=== PATIENT | male | born 1985 | race Hispanic/Latino ===

== ENCOUNTER 2020-04-18 01:24 | Inpatient (IN) | payer BC, SELFPAY ==
--- NOTE | 2020-04-18 02:14 | ER ---
Nurse's Notes [facility] Name: Todd Horner Age: 35 yrs Sex: Male : 1985 Arrival Date: 04/18/2020 Time: 01:29 Bed 3 Private MD: Diagnosis: Dyspnea;Hypoxemia;Other viral pneumonia-Covid 19;Obesity, unspecified Presentation: 04/18 01:45 Chief complaint: Patient states: i was tested covid positive last Apr 13, 2020 \T\ [address] i'm here for shortness of breath and fever. Coronavirus screen: Client denies travel out of the [place] in the last 14 days. Client reports previous positive COVID test result. Date of collection: April 13, 2020 \T\ [facility]. Ebola Screen: Patient positive for the following Ebola Virus Disease associated symptoms:. Initial Sepsis Screen: Does the patient meet any 2 criteria?. Risk Assessment: Do you want to hurt yourself or someone else? Patient reports no desire to harm self or others. Onset of symptoms was March 2020. 01:45 Method Of Arrival[place] [facility] Acuity: RANDY 2 mg2 02:41 Initial Sepsis Screen: Does the patient have a suspected source of infection?. mg2 Triage Assessment: 02:00 General: Appears in no apparent distress. comfortable, Behavior is calm, cooperative. mg2 Pain: Denies pain. EENT: No signs and/or symptoms were reported regarding the EENT system. Neuro: Level of Consciousness is awake, alert, obeys commands, Oriented to person, place, time, situation. Cardiovascular: Capillary refill < 3 seconds Patient's skin is warm and dry. Respiratory: Reports shortness of breath at rest. Respiratory: Onset: The symptoms/episode began/occurred gradually. GI: No signs and/or symptoms were reported involving the gastrointestinal system. : No signs and/or symptoms were reported regarding the genitourinary system. Derm: Skin is intact, is healthy with good turgor. Musculoskeletal: Circulation, motion, and sensation intact. Capillary refill < 3 seconds. Historical: - Allergies: :59 No Known Allergies; mg2 - Home Meds: : [facility] Thyroid 120 mg Oral tab daily [Active]; mg2 - PMHx: : Hypothyroidism; mg2 - PSHx: 01:59 None; mg2 - Immunization history:: Flu vaccine status is unknown. - Social history:: Smoking status: Patient denies any tobacco usage or history of. Patient/guardian denies using alcohol, street drugs, IV drugs. Screenin:01 Abuse screen: Denies threats or abuse. Denies injuries from another. Nutritional mg2 screening: No deficits noted. Tuberculosis screening: No symptoms or risk factors identified. Fall Risk IV access (20 points). Assessment: 02:01 General: see triage note. mg2 02:41 Respiratory: Airway is patent Respiratory effort is even, unlabored, mg2 Vital Signs: 01:42 BP 114 / 82; Pulse 97; Resp 24; Temp 99.7(O); Pulse Ox 88% on R/A; Weight 154.22 kg tt3 (R); Height 5 ft. 10 in. (177.80 cm) (R); Pain 7/10; 02:00 Resp 18; mg2 02:00 BP 102 / 65; Pulse 87; Resp 18; Pulse Ox 93% on R/A; mg2 01:42 Body Mass Index 48.78 (154.22 kg, 177.80 cm) tt3 ED Course: 01:29 Patient arrived in ED. bp1 01:52 Sony Barrera, FRANK is Primary Nurse. mg2 01:53 Inocente Worthy MD is Attending Physician. janell 01:59 Triage completed. mg2 01:59 Arm band placed on. mg2 02:01 Patient has correct armband on for positive identification. mg2 02:11 Víctor Sanders DO is Hospitalizing Provider. janell 02:15 Inserted saline lock: 20 gauge in left wrist, using aseptic technique. Blood collected. mg2 02:28 XRAY Chest (1 view) In Process Unspecified. EDMS 02:39 Clay Lara MD is Hospitalizing Provider. la1 02:40 No provider procedures requiring assistance completed. mg2 03:37 Patient admitted, IV remains in place. mg2 Administered Medications: 02:31 Drug: Albuterol HFA Inhaler 4 puffs Route: Inhalation; mg2 03:45 Follow up: Response: No adverse reaction mg2 02:39 Drug: Aspirin Chewable Tablet 324 mg Route: PO; mg2 03:46 Follow up: Response: No adverse reaction mg2 02:39 Drug: Rocephin 1 grams Route: IV; Rate: per protocol; Site: left wrist; mg2 03:45 Follow up: Response: No adverse reaction; IV Status: Completed infusion mg2 02:39 Drug: Zithromax 500 mg Route: IVPB; Infused Over: 1 hrs; Site: left wrist; mg2 03:45 Follow up: Response: No adverse reaction; IV Status: Completed infusion; IV Intake: mg2 250ml 02:40 Drug: Decadron - Dexamethasone 10 mg Route: IVP; Site: left wrist; mg2 03:46 Follow up: Response: No adverse reaction mg2 02:40 Drug: Pepcid 20 mg Route: IVP; Site: left wrist; mg2 03:46 Follow up: Response: No adverse reaction mg2 Intake: 03:45 IV: 250ml; Total: 250ml. mg2 Outcome: 02:12 Decision to Hospitalize by Provider. janell 03:38 Admitted to Tele accompanied by tech, via wheelchair, room 405, with chart, Report mg2 called to FRANK Schreiber 03:38 Condition: stable 03:38 Instructed on the need for admit, Demonstrated understanding of instructions. 03:47 Patient left the ED. mg2 Signatures: Dispatcher [employer] Inocente Alberts MD MD cha Attema, Lee, QUARTZ MINER-C QUARTZ MINER-Cla1 Sony Barrera, RN RN mg2 Seda Banuelos Tyler tt3
--- NOTE | 2020-04-18 02:14 | EDPHYS ---
Physician Documentation [facility] Name: Todd Horner Age: 35 yrs Sex: Male : 1985 Arrival Date: 04/18/2020 Time: 01:29 Bed 3 Private MD: ED Physician Inocente Worthy HPI: 04/18 02:04 This 35 yrs old Male presents to ER via Ambulatory with complaints of Covid+, janell Shortness Of Breath, Breathing Difficulty. 02:04 The patient has shortness of breath at rest, with light activity. Onset: The janell symptoms/episode began/occurred 3 day(s) ago. Duration: The symptoms are continuous, and are steadily getting worse. The patient's shortness of breath is aggravated by coughing, supine position, talking, walking, is alleviated by rest, sitting up, application of supplemental oxygen. Associated signs and symptoms: Pertinent positives: non-productive cough. Severity of symptoms: At their worst the symptoms were moderate in the emergency department the symptoms are unchanged. The patient has not experienced similar symptoms in the past. Historical: - Allergies: : No Known Allergies; mg2 - Home Meds: : [place] Thyroid 120 mg Oral tab daily [Active]; mg2 - PMHx: : Hypothyroidism; mg2 - PSHx: :59 None; mg2 - Immunization history:: Flu vaccine status is unknown. - Social history:: Smoking status: Patient denies any tobacco usage or history of. Patient/guardian denies using alcohol, street drugs, IV drugs. ROS: 02:06 Constitutional: Negative for fever, chills, and weight loss, Eyes: Negative for injury, janell pain, redness, and discharge, ENT: Negative for injury, pain, and discharge, Neck: Negative for injury, pain, and swelling, Cardiovascular: Negative for chest pain, palpitations, and edema, Abdomen/GI: Negative for abdominal pain, nausea, vomiting, diarrhea, and constipation, Back: Negative for injury and pain, : Negative for injury, bleeding, discharge, and swelling, MS/Extremity: Negative for injury and deformity, Skin: Negative for injury, rash, and discoloration, Neuro: Negative for headache, weakness, numbness, tingling, and seizure, Psych: Negative for depression, anxiety, suicide ideation, homicidal ideation, and hallucinations, Allergy/Immunology: Negative for hives, rash, and allergies, Endocrine: Negative for neck swelling, polydipsia, polyuria, polyphagia, and marked weight changes, Hematologic/Lymphatic: Negative for swollen nodes, abnormal bleeding, and unusual bruising. 02:06 Respiratory: Positive for cough, shortness of breath, at rest. Exam: 02:06 Constitutional: This is a well developed, well nourished patient who is awake, alert, janell and in no acute distress. Head/Face: Normocephalic, atraumatic. Eyes: Pupils equal round and reactive to light, extra-ocular motions intact. Lids and lashes normal. Conjunctiva and sclera are non-icteric and not injected. Cornea within normal limits. Periorbital areas with no swelling, redness, or edema. ENT: Nares patent. No nasal discharge, no septal abnormalities noted. Tympanic membranes are normal and external auditory canals are clear. Oropharynx with no redness, swelling, or masses, exudates, or evidence of obstruction, uvula midline. Mucous membranes moist. Neck: Trachea midline, no thyromegaly or masses palpated, and no cervical lymphadenopathy. Supple, full range of motion without nuchal rigidity, or vertebral point tenderness. No Meningismus. Chest/axilla: Normal chest wall appearance and motion. Nontender with no deformity. No lesions are appreciated. Cardiovascular: Regular rate and rhythm with a normal S1 and S2. No gallops, murmurs, or rubs. Normal PMI, no JVD. No pulse deficits. Abdomen/GI: Soft, non-tender, with normal bowel sounds. No distension or tympany. No guarding or rebound. No evidence of tenderness throughout. Back: No spinal tenderness. No costovertebral tenderness. Full range of motion. Male : Normal genitalia with no discharge or lesions. Skin: Warm, dry with normal turgor. Normal color with no rashes, no lesions, and no evidence of cellulitis. MS/ Extremity: Pulses equal, no cyanosis. Neurovascular intact. Full, normal range of motion. Neuro: Awake and alert, GCS 15, oriented to person, place, time, and situation. Cranial nerves II-XII grossly intact. Motor strength 5/5 in all extremities. Sensory grossly intact. Cerebellar exam normal. Normal gait. Psych: Awake, alert, with orientation to person, place and time. Behavior, mood, and affect are within normal limits. 02:06 Respiratory: mild respiratory distress is noted, Respirations: no acute changes, labored breathing, Breath sounds: are clear throughout, decreased breath sounds, that are moderate, are located in both bases, rhonchi, that are mild, that are moderate, stridor, is not appreciated, + upper airway congestion. 02:10 ECG was reviewed by the Attending Physician. [facility] Vital Signs: 01:42 BP 114 / 82; Pulse 97; Resp 24; Temp 99.7(O); Pulse Ox 88% on R/A; Weight 154.22 kg tt3 (R); Height 5 ft. 10 in. (177.80 cm) (R); Pain 7/10; 02:00 Resp 18; mg2 02:00 BP 102 / 65; Pulse 87; Resp 18; Pulse Ox 93% on R/A; mg2 01:42 Body Mass Index 48.78 (154.22 kg, 177.80 cm) tt3 MDM: 01:58 Patient medically screened. janell 01:58 Patient medically screened. janell 02:08 Differential diagnosis: Bronchitis CHF exacerbation, Chronic Obstructive Pulmonary janell Disease pneumonia, pulmonary edema, Pulmonary Embolism reactive airway disease, Sepsis Unstable Angina. Antibiotic administration: Rocephin and Zithromax given. The patient's Wells Deep Vein Thrombosis Score was calculated as follows: Total Score: 0-2 Pts- Low Risk. Differential Diagnosis: Bronchitis Influenza Upper Respiratory Infection Pharyngitis Viral Syndrome Pneumonia. The patient's pulmonary embolism risk score was calculated as follows: Total Score: 0-2 points. This patient was found to be at low risk for a pulmonary embolism by using the Well's assessment criteria. Immunization status:. Data reviewed: vital signs, nurses notes, lab test result(s), EKG, radiologic studies, plain films. Data interpreted: traffic monitor specialist: rate is 87 beats/min, rhythm is regular, Pulse oximetry: on room air is 93 %. Test interpretation: by ED physician or midlevel provider: ECG, plain radiologic studies. Counseling: I had a detailed discussion with the patient and/or guardian regarding: the historical points, exam findings, and any diagnostic results supporting the discharge/admit diagnosis, lab results, radiology results, the need for further work-up and treatment in the hospital. 04/18 01:57 Order name: Basic Metabolic Panel janell 04/18 01:57 Order name: CBC with Diff; Complete Time: 03:15 janell 04/18 01:57 Order name: LFT's 04/18 01:57 Order name: Magnesium; Complete Time: 03:30 janell 04/18 01:57 Order name: NT PRO-BNP; Complete Time: 03:30 janell 04/18 01:57 Order name: PT-INR; Complete Time: 03:15 janell 04/18 01:57 Order name: Troponin (emerg Dept Use Only); Complete Time: 03:30 janell 04/18 01:57 Order name: XRAY Chest (1 view) 04/18 01:57 Order name: Blood Culture Adult (2) janell 04/18 01:57 Order name: CRP; Complete Time: 03:30 janell 04/18 01:57 Order name: Ferritin; Complete Time: 03:30 janell 04/18 01:57 Order name: Lactate; Complete Time: 03:30 janell 04/18 01:58 Order name: Basic Metabolic Panel; Complete Time: 03:30 EDMS 04/18 01:58 Order name: Liver (Hepatic) Function; Complete Time: 03:30 EDMS 04/18 01:57 Order name: EKG; Complete Time: 01:58 janell 04/18 01:57 Order name: Cardiac monitoring; Complete Time: 02:40 janell 04/18 01:57 Order name: EKG - Nurse/Tech; Complete Time: 02:02 janell 04/18 01:57 Order name: IV Saline Lock; Complete Time: 02:40 janell 04/18 01:57 Order name: Labs collected and sent; Complete Time: 02:40 janell 04/18 01:57 Order name: O2 Per Protocol; Complete Time: 02:40 janell 04/18 01:57 Order name: O2 Sat Monitoring; Complete Time: 02:40 janell 04/18 01:57 Order name: CT Chest For PE Angio [facility] EC:10 Rate is 82 beats/min. Rhythm is regular. QRS [place] is Normal. MA interval is normal. QRS janell interval is normal. QT interval is normal. No Q waves. T waves are Normal. No ST changes noted. Clinical impression: NSR w/ Non-specific ST/T Changes and No evidence of ischemia. Interpreted by me. Reviewed by me. Administered Medications: 02:31 Drug: Albuterol HFA Inhaler 4 puffs Route: Inhalation; mg2 03:45 Follow up: Response: No adverse reaction mg2 02:39 Drug: Aspirin Chewable Tablet 324 mg Route: PO; mg2 03:46 Follow up: Response: No adverse reaction mg2 02:39 Drug: Rocephin 1 grams Route: IV; Rate: per protocol; Site: left wrist; mg2 03:45 Follow up: Response: No adverse reaction; IV Status: Completed infusion mg2 02:39 Drug: Zithromax 500 mg Route: IVPB; Infused Over: 1 hrs; Site: left wrist; mg2 03:45 Follow up: Response: No adverse reaction; IV Status: Completed infusion; IV Intake: mg2 250ml 02:40 Drug: Decadron - Dexamethasone 10 mg Route: IVP; Site: left wrist; mg2 03:46 Follow up: Response: No adverse reaction mg2 02:40 Drug: Pepcid 20 mg Route: IVP; Site: left wrist; mg2 03:46 Follow up: Response: No adverse reaction mg2 Disposition: 04/18/20 02:12 Hospitalization ordered by Clay Lara for Inpatient Admission. Preliminary diagnosis are Dyspnea, Hypoxemia, Other viral pneumonia - Covid 19, Obesity, unspecified. - Bed requested for Telemetry/MedSurg (Inpatient). - Status is Inpatient Admission. mg2 - Condition is Fair. - Problem is new. - Symptoms have improved. Signatures: Dispatcher [employer] EDMS Inocente Worthy MD MD cha Attema, Lee, PHP MYSQL DEVELOPER-C PHP MYSQL DEVELOPER-Cla1 Sol Bhat RN RN Sony Barrera RN RN mg2 Corrections: (The following items were deleted from the chart) 02:39 02:12 Hospitalization Ordered by Víctor Sanders DO for Inpatient Admission. Preliminary la1 diagnosis is Dyspnea; Hypoxemia; Other viral pneumonia - Covid 19; Obesity, unspecified. Bed requested for Telemetry/MedSurg (Inpatient). Status is Inpatient Admission. Condition is Fair. Problem is new. Symptoms have improved. janell 03:00 02:39 04/18/2020 02:12 Hospitalization Ordered by Clay Lara MD for Inpatient cg Admission. Preliminary diagnosis is Dyspnea; Hypoxemia; Other viral pneumonia - Covid 19; Obesity, unspecified. Bed requested for Telemetry/MedSurg (Inpatient). Status is Inpatient Admission. Condition is Fair. Problem is new. Symptoms have improved. la1 03:47 03:00 04/18/2020 02:12 Hospitalization Ordered by Clay Lara MD for Inpatient mg2 Admission. Preliminary diagnosis is Dyspnea; Hypoxemia; Other viral pneumonia - Covid 19; Obesity, unspecified. Bed requested for Telemetry/MedSurg (Inpatient). Status is Inpatient Admission. Condition is Fair. Problem is new. Symptoms have improved.
[2020-04-18] MEDS ORDERED: dexAMETHasone 10 MG/ML VIAL ONE (02:24)
[2020-04-18] MEDS ORDERED: NA CHLORIDE 0.9% 250 ML ONE (02:24)
[2020-04-18] MEDS ORDERED: CEFTRIAXONE/SWI 1gm 1 GM/10 ML SYR ONE (02:24)
[2020-04-18] MEDS ORDERED: ASPIRIN 81 MG CHEWABLE TABLET ONE (02:24)
[2020-04-18] MEDS ORDERED: FAMOTIDINE 20 MG/2 ML VIAL IV ONE (02:24)
[2020-04-18] MEDS ORDERED: ALBUTEROL INHALER 60 PUFF/8 GM IH ONE (02:33)
[2020-04-18] MEDS ORDERED: AZITHROMYCIN 500 MG INJ IVPB ONE (02:51)
[2020-04-18 03:06] LABS: Absolute Lymphocytes (CBC) 0.9 K/uL (0.7-4.9); Basophils % 0.2 % (0-1.3); Hematocrit 48.8 % (39.6-49.0); Lymphocytes % 19.6 % (15.3-44.8); MPV 8.9 fL (7.6-11.3); Protime INR 1.12; RBC Red Blood Cell Count 5.54 M/uL (4.33-5.43)
[2020-04-18 03:18] LABS: ALT/SGPT 43 U/L (12-78); AST/SGOT 62 U/L (15-37); Albumin 3.4 g/dL (3.4-5.0); Alkaline Phosphatase 64 U/L (45-117); BUN Blood Urea Nitrogen 9 mg/dL (7-18); Bicarbonate 25 mmol/L (21-32); Bilirubin Direct 0.2 mg/dL (0-0.2); Bilirubin Total 0.7 mg/dL (0.2-1.0); Ferritin 616.4 ng/mL (26-388); Glucose Level 98 mg/dL (74-106); Magnesium 2.1 mg/dL (1.8-2.4); NT PRO-BNP 6 pg/mL (<125); Potassium 3.7 mmol/L (3.5-5.1); Protein, Total 8.1 g/dL (6.4-8.2); Sodium Level 133 mmol/L (136-145); Troponin (Emerg Dept Use Only) < 0.02 ng/mL (0.0-0.045)
[2020-04-18] MEDS ORDERED: BENZONATATE 100 MG CAP PO PRN (03:43)
[2020-04-18] MEDS ORDERED: ONDANSETRON 4 MG/2 ML VIAL IV PRN (03:43)
[2020-04-18] MEDS ORDERED: IVERMECTIN 3 MG TABLET PO SCH (03:43)
[2020-04-18] MEDS ORDERED: MELATONIN 5 MG TABLET PO PRN (03:43)
--- NOTE | 2020-04-18 03:54 | P.HP ---
Certification for Inpatient Patient admitted to: Inpatient With expected LOS: >2 Midnights Patient will require the following post-hospital care: None Practitioner: I am a practitioner with admitting privileges, knowledge of patient current condition, hospital course, and medical plan of care. Services: Services provided to patient in accordance with Admission requirements found in Title 42 Section 412.3 of the Code of Federal Regulations <Leno Solis - Last Filed: 04/18/20 03:50> Patient History Date of Service: 04/18/20 Primary Care Provider: Dr. Gaines Reason for admission: COVID-19 pneumonia History of Present Illness: 35-year-old male with history of hypothyroidism, obesity presents e [facility] for shortness of breath. Patient reports testing positive for Mcbride virus on April 13 2020 with progressing shortness of breath since then. Patient reports having a pulse oximeter at home and finding his saturations to be 83%, presented to the emergency department for evaluation. Upon arrival to the ED patient's room air saturations 88% while the patient is not significantly tachypneic or dyspneic at this time. ER workup reveals C- reactive protein 28.3 ferritin 616.4 white blood cell count 4.7. ED provider wishes to admit patient for further evaluation and management. - Past Medical/Surgical History -: Hypothyroidism -: Obesity -: none Psychosocial/ Personal History: Patient is unemployed, lives with - Family History Mother -: Diabetes - Social History Smoking Status: Never smoker Alcohol use: Yes CD- Drugs: No Caffeine use: Yes Place of Residence: Home <Leno Solis - Last Filed: 04/18/20 03:50> Date of Service: 04/18/20 <Clay Lara - Last Filed: 04/18/20 12:20> Allergies No Known Allergi Allergy (Uncoded 09/19/16 07:45) Unknown Review of Systems 10-point ROS is otherwise unremarkable Respiratory: Cough, Shortness of Breath <Leno Solis - Last Filed: 04/18/20 03:50> Physical Examination - Physical Exam General: Alert, In no apparent distress HEENT: Atraumatic, PERRLA, Mucous membr. moist/pink Neck: Supple, 2+ carotid pulse no bruit, No LAD Respiratory: Normal air movement, Diminished (Bilaterally) Cardiovascular: Regular rate/rhythm, Normal S1 S2 Gastrointestinal: Normal bowel sounds, No tenderness Musculoskeletal: No tenderness Integumentary: No rashes Neurological: Normal speech, Normal strength at 5/5 x4 extr, Normal tone, Normal affect - Studies Laboratory Data (last 24 hrs) 04/18/20 02:15: PT 12.9 H, INR 1.12 04/18/20 02:15: WBC 4.70, Hgb 16.6, Hct 48.8, Plt Count 167 04/18/20 02:15: Sodium 133 L, Potassium 3.7, BUN 9, Creatinine 0.87, Glucose 98, Magnesium 2.1, Total Bilirubin 0.7, AST 62 H, ALT 43, Alkaline Phosphatase 64 <Leno Solis - Last Filed: 04/18/20 03:50> - Studies Laboratory Data (last 24 hrs) 04/18/20 02:15: PT 12.9 H, INR 1.12 04/18/20 02:15: WBC 4.70, Hgb 16.6, Hct 48.8, Plt Count 167 04/18/20 02:15: Sodium 133 L, Potassium 3.7, BUN 9, Creatinine 0.87, Glucose 98, Magnesium 2.1, Total Bilirubin 0.7, AST 62 H, ALT 43, Alkaline Phosphatase 64 <Clay Lara - Last Filed: 04/18/20 12:20> Assessment and Plan - Plan Assessment Dyspnea, hypoxia secondary to COVID-19 pneumonia Obesity Hypothyroidism Plan Dyspnea, hypoxia secondary to COVID-19 pneumonia: Trend CRP, ferritin levels, pulmonology consult in place. Continue IV steroids, oral supplementation. Discussed ivermectin with patient including the fact that is not cleared by the FDA for use for treating COVID as well as the potential risks and benefits, patient elects to receive ivermectin. Continue with supplemental oxygen as needed titrate saturations greater than 93%. Daily room air saturations and room air saturations for home oxygen. DVT prophylaxis Lovenox 40 mg subcutaneous once daily. Appreciate further input from pulmonology. Obesity: Increase risk for complications due to mcbride virus, will discuss lifestyle changes and dietary management. Hypothyroidism: Thyroid panel morning labs, continue home medication. Discharge Plan: Home Plan to discharge in: 48 Hours - Advance Directives Does patient have a Living Will: No Does patient have a Durable POA for Healthcare: No - Code Status/Comfort Care Code Status Assessed: Yes (Full code) Critical Care: No Time Spent Managing Pts Care (In Minutes): 55 <Leno Solis - Last Filed: 04/18/20 03:50> - Plan Plan of care reviewed as noted above by Leno Solis Agree with plan - IV steroids, vitamin supplementation, check RA and ambulatory SpO2 possible dc home later today if doing well / qualifies and able to obtain home O2 <Clay Lara - Last Filed: 04/18/20 12:20>
[2020-04-18 04:36] VITALS: BMI 49.4
[2020-04-18 05:58] LABS: Urine Appearance CLEAR; Urine Bilirubin NEGATIVE (NEG); Urine Blood NEGATIVE (NEG); Urine Color YELLOW; Urine Glucose NEGATIVE (NEG); Urine Protein NEGATIVE (NEG); Urine Specific Gravity >=1.030 (1.005-1.030); Urine Urobilinogen 0.2 mg/dL (0.2-1.0)
[2020-04-18 06:17] LABS: Urine Microscopic Reflex NO UMIC
[2020-04-18] MEDS ORDERED: POTASSIUM CL SA 10 MEQ TAB PO ONE (07:02)
[2020-04-18] MEDS: THIAMINE HCL 100 MG TABLET PO SCH (07:29)
[2020-04-18] MEDS: ASPIRIN EC 81 MG TAB PO SCH (07:29)
[2020-04-18] MEDS: VITAMIN D 1000 UNIT TAB PO SCH (07:29)
[2020-04-18] MEDS: FAMOTIDINE 20 MG TAB PO SCH ×2 (07:29→21:56)
[2020-04-18] MEDS: ZINC SULFATE 220 MG CAP PO SCH (07:29)
[2020-04-18] MEDS: ASCORBIC ACID 500 MG TABLET PO SCH ×4 (07:29→21:57)
[2020-04-18] MEDS: ENOXAPARIN 40 MG/0.4 ML SQ SCH (07:30)
[2020-04-18] MEDS: METHYLPREDNISOLONE 40 MG INJ IV SCH ×2 (07:30→21:57)
[2020-04-18] MEDS: ACETAMINOPHEN 500 MG TAB PO PRN ×3 (07:36→21:58)
[2020-04-18] MEDS ORDERED: INFLUENZA VACCINE (for 3y+) 0.5 ML DOSE IMVAC ONE (08:00)
--- NOTE | 2020-04-18 08:37 | RAD REPORT ---
EXAM DESCRIPTION: RAD - Chest Single View - 04/18/2020 2:28 am CLINICAL HISTORY: Cough;Dyspnea, COVID positive April 13 COMPARISON: No prior imaging TECHNIQUE: AP portable chest image was obtained 04/18/2020 2:28 am . FINDINGS: Lung volumes are low. Large body habitus further accentuates heart, vasculature and lung f indings. Patient does have a bilateral airspace opacification evident on this examination. This would be consi stent with a bilateral COVID-19 pneumonia. Cardiomegaly is present due to low lung volumes and large body habitus affects. Patient may have mild cardiomegaly. No measurable pleural effusion and no pneumothorax. No acute bony abnormality seen. No acute aortic findings suspected. IMPRESSION: Bilateral COVID-19 pneumonia. Pattern appears mild but assessment is limited due to low lung volumes and body habitus affects.
--- NOTE | 2020-04-18 11:38 | RAD REPORT ---
EXAM DESCRIPTION: CT - Chest For Pe Angio - 04/18/2020 6:55 am CLINICAL HISTORY: Chest pain;Dyspnea COMPARISON: None Available. TECHNIQUE: CTA of the chest obtained following the uncomplicated intravenous administration of . 3-D /MIP reformatted images of the chest available for evaluation. This exam was performed according to o departmental dose-optimization program, which includes automated exposure control, adjustment of t he mA and/or kV according to patient size and/or use of iterative reconstruction technique. Motion ar tifact. Portions of the lung bases are nonvisualized on this study. FINDINGS: Chest: Pulmonary arteries: Contrast bolus is adequate.No filling defects identified in the pulmonary arterie s to suggest pulmonary embolus. Motion artifact. Mild dilation of the main pulmonary artery. This cou ld be seen with pulmonary arterial hypertension. Thyroid: No abnormalities of the visualized thyroid. Great Vessels: Great vessels have normal anatomic configuration. Thoracic Aorta: No abnormalities of the thoracic aorta identified. Heart: No cardiomegaly, significant pericardial effusion, or coronary artery atherosclerosis Lymph Nodes: No enlarged mediastinal lymph nodes identified. Esophagus: No abnormalities of the esophagus identified. Other: No additional findings. Lungs: Multifocal bilateral peripheral and central groundglass and airspace nodular opacities. Pleura: No pleural effusion or pneumothorax. Trachea/Airways: No abnormalities of the visualized trachea or airways. Bones: Minimal degenerative endplate spondylosis. Upper Abdomen: Limited images of the upper abdomen demonstrate no definite abnormalities of visualize d portions of the liver and spleen. IMPRESSION: 1. No pulmonary embolus identified. 2. Multifocal bilateral groundglass and airspace nodular opacities. Commonly reported imaging featu res of viral pneumonia are present. Other processes such as influenza pneumonia and organizing pneumo edson, as can be seen with drug toxicity and connective tissue disease, can cause a similar imaging pat tern. PneTyp Reference: https://pubs.rsna.org/doi/full/[email or web address]/[email or web address] Electronically signed by: Cesar Ramos 04/18/2020 3:33 AM BANKRUPTCY JUDGE Due to temporary technical issues with the PACS/Fluency reporting system, reports are being signed by the in house radiologist without review as a courtesy to ensure prompt reporting. The interpreting r adiologist is fully responsible for the content of the report.
[2020-04-18] MEDS ORDERED: CEPACOL LOZENGES PO PRN (14:22)
[2020-04-18] MEDS ORDERED: ATORVASTATIN 40 MG TAB PO SCH (21:00)
[2020-04-19 04:13] LABS: Absolute Lymphocytes (CBC) 0.7 K/uL (0.7-4.9); Basophils % 0.2 % (0-1.3); Hematocrit 47.7 % (39.6-49.0); MPV 9.3 fL (7.6-11.3); RBC Red Blood Cell Count 5.41 M/uL (4.33-5.43)
[2020-04-19 04:50] LABS: ALT/SGPT 39 U/L (12-78); AST/SGOT 40 U/L (15-37); Albumin 3.3 g/dL (3.4-5.0); Alkaline Phosphatase 64 U/L (45-117); BUN Blood Urea Nitrogen 13 mg/dL (7-18); Bicarbonate 27 mmol/L (21-32); Bilirubin Total 0.5 mg/dL (0.2-1.0); Ferritin 551.8 ng/mL (26-388); Glucose Level 148 mg/dL (74-106); HDL Cholesterol 46 mg/dL (40-60); LDL Cholesterol, Calculated 51 (<130); Magnesium 2.3 mg/dL (1.8-2.4); Potassium 4.2 mmol/L (3.5-5.1); Sodium Level 135 mmol/L (136-145)
[2020-04-19] MEDS: ENOXAPARIN 40 MG/0.4 ML SQ SCH (07:44)
[2020-04-19] MEDS: VITAMIN D 1000 UNIT TAB PO SCH (07:45)
[2020-04-19] MEDS: ZINC SULFATE 220 MG CAP PO SCH (07:45)
[2020-04-19] MEDS: METHYLPREDNISOLONE 40 MG INJ IV SCH (07:45)
[2020-04-19] MEDS: ASCORBIC ACID 500 MG TABLET PO SCH (07:46)
[2020-04-19] MEDS: ASPIRIN EC 81 MG TAB PO SCH (07:46)
[2020-04-19] MEDS: THIAMINE HCL 100 MG TABLET PO SCH (07:46)
[2020-04-19] MEDS: FAMOTIDINE 20 MG TAB PO SCH (07:46)
[2020-04-19 09:06] VITALS: O2SAT 92
--- NOTE | 2020-04-19 10:05 | P.DS ---
Admission Date: 04/18/20 Discharge Date: 04/19/20 Primary Care Provider: Dr. Gaines Disposition: ROUTINE DISCHARGE Discharge Condition: GOOD Reason for Admission: COVID-19 pneumonia Procedures: CTA (04/18): 1. No pulmonary embolus identified. 2. Multifocal bilateral groundglass and airspace nodular opacities. Commonly reported imaging features of viral pneumonia are present. Other processes such as influenza pneumonia and organizing pneumonia, as can be seen with drug toxicity and connective tissue disease, can cause a similar imaging pattern. Problem List Dyspnea, hypoxia secondary to COVID-19 pneumonia Obesity Hypothyroidism Brief History of Present Illness: 35-year-old male with history of hypothyroidism, obesity presents e [facility] for shortness of breath. Patient reports testing positive for Perez virus on April 13 2020 with progressing shortness of breath since then. Patient reports having a pulse oximeter at home and finding his saturations to be 83%, presented to the emergency department for evaluation. Upon arrival to the ED patient's room air saturations 88% while the patient is not significantly tachypneic or dyspneic at this time. ER workup reveals C- reactive protein 28.3 ferritin 616.4 white blood cell count 4.7. ED provider wishes to admit patient for further evaluation and management. Hospital Course: The patient was admitted and treated with IV Solu-Medrol, either mixed in, and vitamin supplementation. Patient continued to do well and was breathing comfortably on room air. With ambulation, patient was noted to drop to 88% on room air. Home oxygen was set up for the patient, he continued to do well, and was discharged home with medication and oxygen. He is to follow up with Dr. Gibson in 1 week. Vital Signs/Physical Exam: Physical Exam General: Alert, In no apparent distress HEENT: Atraumatic, PERRLA, Mucous membr. moist/pink Neck: Supple, 2+ carotid pulse no bruit, No LAD Respiratory: Normal air movement, Diminished (Bilaterally) Cardiovascular: Regular rate/rhythm, Normal S1 S2 Gastrointestinal: Normal bowel sounds, No tenderness Musculoskeletal: No tenderness Integumentary: No rashes Neurological: Normal speech, Normal strength at 5/5 x4 extr, Normal affect Temp Pulse Resp BP Pulse Ox 97.4 F 67 16 117/72 92 04/19/20 08:00 04/19/20 08:00 04/19/20 08:00 04/19/20 08:00 04/19/20 08:00 Laboratory Data at Discharge: WBC 5.20 K/uL (4.3-10.9) 04/19/20 03:48 Hgb 16.3 g/dL (13.6-17.9) 04/19/20 03:48 Hct 47.7 % (39.6-49.0) 04/19/20 03:48 Plt Count 199 K/uL (152-406) 04/19/20 03:48 PT 12.9 SECONDS (9.5-12.5) H 04/18/20 02:15 INR 1.12 04/18/20 02:15 Sodium 135 mmol/L (136-145) L 04/19/20 03:48 Potassium 4.2 mmol/L (3.5-5.1) 04/19/20 03:48 BUN 13 mg/dL (7-18) 04/19/20 03:48 Creatinine 0.66 mg/dL (0.55-1.3) 04/19/20 03:48 Glucose 148 mg/dL (74-106) H 04/19/20 03:48 Magnesium 2.3 mg/dL (1.8-2.4) 04/19/20 03:48 Total Bilirubin 0.5 mg/dL (0.2-1.0) 04/19/20 03:48 AST 40 U/L (15-37) H 04/19/20 03:48 ALT 39 U/L (12-78) 04/19/20 03:48 Alkaline Phosphatase 64 U/L (45-117) 04/19/20 03:48 Triglycerides 101 mg/dL (<150) 04/19/20 03:48 Cholesterol 117 mg/dL (<200) 04/19/20 03:48 HDL Cholesterol 46 mg/dL (40-60) 04/19/20 03:48 Cholesterol/HDL Ratio 2.54 04/19/20 03:48 Home Medications: Thyroid,Pork [[place] Thyroid] 1 tab PO DAILY 04/18/20 Ascorbic Acid [Vitamin C*] 500 mg PO QID 30 Days #120 tablet 04/19/20 Aspirin [Aspirin EC 81 MG] 81 mg PO DAILY #30 tablet. 04/19/20 Benzonatate [Tessalon Perle*] 100 mg PO TID PRN #20 cap 04/19/20 Cholecalciferol (Vitamin D3) [Vitamin D 1000 Iu Tab*] 4,000 unit PO DAILY 30 Days #120 tab 04/19/20 Ivermectin 18 mg PO Q48H 1 Days #6 tablet 04/19/20 Thiamine HCl [Vitamin B-1*] 200 mg PO DAILY 30 Days #30 tablet 04/19/20 Zinc Sulfate [Zinc Sulfate*] 220 mg PO DAILY 30 Days #30 cap 04/19/20 predniSONE [Prednisone] 20 mg PO SEECOM #21 tablet 04/19/20 New Medications: Aspirin [Aspirin EC 81 MG] 81 mg PO DAILY #30 tablet. Ivermectin 18 mg PO Q48H 1 Days #6 tablet predniSONE [Prednisone] 20 mg PO SEECOM #21 tablet Benzonatate [Tessalon Perle*] 100 mg PO TID PRN #20 cap PRN Reason: Cough Thiamine HCl [Vitamin B-1*] 200 mg PO DAILY 30 Days #30 tablet Ascorbic Acid [Vitamin C*] 500 mg PO QID 30 Days #120 tablet Cholecalciferol (Vitamin D3) [Vitamin D 1000 Iu Tab*] 4,000 unit PO DAILY 30 Days #120 tab Zinc Sulfate [Zinc Sulfate*] 220 mg PO DAILY 30 Days #30 cap Diet: Regular Activity: Ad jed Followup: Denver Gaines MD [ACTIVE - CAN ADMIT] - 1-2 Weeks (Call for appointment) Time spent managing pt's care (in minutes): 45
[2020-04-19 12:20] VITALS: BP 119/68; TEMP 97.5
== END 2020-04-19 13:00 | disposition home or self-care (01) | DRG 177 ==
LOC: ER 01:24 → ERHOLD 02:54 → 4TH 03:42
PROVIDERS: ADMIT Hospitalist; ATTEND Hospitalist
DX: U07.1 COVID-19 (principal); J12.82 Pneumonia due to coronavirus disease 2019; Z68.42 Body mass index [BMI] 45.0-49.9, adult; E66.9 Obesity, unspecified; E03.9 Hypothyroidism, unspecified; R09.02 Hypoxemia; Z56.0 Unemployment, unspecified; Z79.52 Long term (current) use of systemic steroids; Z79.82 Long term (current) use of aspirin; Z79.899 Other long term (current) drug therapy
CPT/HCPCS: 36415; 71045; 71275; 80048; 80053; 80061; 80076; 81003; 82565; 82728; 83605; 83735; 83880; 84439; 84443; 84484; 85025; 85610; 86140; 87040; 93005; 96365; 96368; 96375; 99285; J0456; J0696; J1100; J1650; J2920; J7050; Q9967